=== PATIENT | female | born 1945 | race Caucasian/White ===

== ENCOUNTER → 2016-09-24 | Outpatient (CLI) | payer OTHER ==
[~2016-09-24] MED LIST: CHOLESTEROL; FLEXERIL10 M1 PO; HYDROCHLOROTH12.5 M1 PO; NAPROSYN500 MG PO; NORVASC10 MG PO; PERCOCET5/325 PO; PHENERGAN25 MG PO; PROTONIX PO; SYNTHROID25 MCG PO
--- NOTE | ~2016-09-24 | CT3 ---
[facility] A Service of [facility] RADIOLOGY TEXT RESULTS PATIENT: SARIKA VILLA [facility] 49 UNIT #: [id number] AGE: [address]: FELISHA DAY APRN SEX: F ORDER DR: [id number] [facility] [address] [place], [place] [address] [id number] O MR#: [id number] Acc #: [id number] NAME: SARIKA VILLA : 1945 SEX: F STUDY DATE/TIME: 09/24/2016 14:45 UNIT: [facility] ROOM: STUDY DESCRIPTION: CT Abd and Pelv WWo Cont Attending Physician: Felisha Day M.D. Referring Physician: Felisha Day M.D. Ordering Physician: Felisha Day M.D. Primary Care Physician: Nila Wells M.D. MEDICAL IMAGING REPORT This report is preliminary unless electronic signature is present EXAM CT abdomen without contrast, CT abdomen and pelvis with contrast. INDICATIONS Left-sided mass on abdominal ultrasound performed at physician's office. Ultrasound at physician's office significant for complex lesions in the left kidney. Observation for left renal mass. PROCEDURE Unenhanced CT of the abdomen. Postcontrast CT abdomen and pelvis multiphase acquisition through the kidneys. This CT exam was performed with one or more of the following radiation dose reduction techniques: automatic exposure control, adjustment of mA and/or kV according to patient size, and iterative reconstruction. COMPARISON Report from an abdominal ultrasound performed on 07/31/2016. Images from that study are not available. The report is from [facility]. Comparison is also made with a CT of the abdomen and pelvis from this facility on 02/20/2014. FINDINGS ABDOMEN WITHOUT CONTRAST: Included lung bases clear. No radiodense gallstones. There is a 1-2 mm nonobstructing calculus at the lower pole of the left kidney. ABDOMEN WITH CONTRAST: The kidneys enhance symmetrically. There are several small bilateral renal cysts. No enhancing renal mass. An index proteinaceous or hemorrhagic cyst left kidney measures 10 mm. Symmetric excretion of contrast. Liver, spleen, adrenal glands, pancreas and gallbladder unremarkable. [facility]. [facility] A Service of [facility] RADIOLOGY TEXT RESULTS PATIENT: SARIKA VILLA LOCATION: [facility] : 49 UNIT #: [id number] AGE: [address]: FELISHA DAY APRN SEX: F ORDER DR: Bowel loops are nondilated. PELVIS WITH CONTRAST: Previous hysterectomy. No pelvic mass or fluid. No aggressive appearing bone lesion. IMPRESSION 1. Small bilateral renal cysts, some of which are proteinaceous or hemorrhagic cyst. No enhancing renal mass is seen. 2. Other findings are detailed above. Dictated by... Dakotah Weeks M.D. THIS IS AN ELECTRONICALLY VERIFIED REPORT Dakotah Weeks M.D. at 09/28/2016 8:19 AM ALEXI/vicky TD: 09/24/2016 20:25 JOB #: [id number] MEDICAL IMAGING REPORT Page 1 of 1 COPY
[2016-09-24 15:51] LABS: POC - CREATININE 0.73 mg/dL (0.44-1.03); POC - GFR >60.0 mL/min (>60)
== END | disposition home or self-care (01) ==
LOC: CCAT 13:27
DX: N28.1 Cyst of kidney, acquired (principal); N28.89 Other specified disorders of kidney and ureter; N20.0 Calculus of kidney; Z90.710 Acquired absence of both cervix and uterus
CPT/HCPCS: 74178; 82565; Q9967